=== PATIENT | female | born 1985 | race Caucasian/White ===

== ENCOUNTER 2022-11-19 16:23 | Emergency (ER) | payer SELFPAY ==
[~2022-11-19] VITALS: Ht 157.5 cm; Wt 84.1 kg
[2022-11-19 16:24] VITALS: BP 135/96
[2022-11-19] MEDS ORDERED: HYDR-3363 PO (17:08)
[2022-11-19] MEDS ORDERED: LEXA1TAB PO (17:08)
[2022-11-19] MEDS ORDERED: MULT-90 PO (17:08)
== END 2022-11-19 17:17 | disposition left against medical advice (07) ==
LOC: M ED 16:23
DX: Z53.21 Procedure and treatment not carried out due to patient leaving prior to being seen by health care provider (principal)